=== PATIENT | female | born 1995 | race African-American/Black ===

== ENCOUNTER 2023-07-03 23:38 | Emergency (ER) | payer BC, SELFPAY ==
[2023-07-04] MEDS ORDERED: Fluconazole 100 MG TAB PO SCH (01:45)
[2023-07-05 02:07] LABS: Chlamydia by PCR, Vaginal Swab Not Detected (NotDetected); GC by PCR, Vaginal Swab Not Detected (NotDetected); Tric.vaginalis PCR,Vaginal Sw Not Detected (NotDetected)
== END 2023-07-04 01:44 | disposition home or self-care (01) ==
LOC: CSHERS 23:38
DX: N76.0 Acute vaginitis (principal); B37.31 Acute candidiasis of vulva and vagina
CPT/HCPCS: 87480; 87491; 87510; 87591; 87660; 87661; 99283